=== PATIENT | female | born 2000 | race Two or more races ===

== ENCOUNTER 2025-06-28 18:22 | Emergency (ER) | payer OTHER ==
[2025-06-28] MEDS ORDERED: ONDANSETRON HCL 2 MG/ML VIAL IV ONE (22:30)
[2025-06-28] MEDS ORDERED: ONDANSETRON HCL 2 MG/ML VIAL ONE (22:40)
[2025-06-29] MEDS ORDERED: DICLOFENAC SODI75 MG PO (00:16)
[2025-06-29] MEDS ORDERED: DOXYCYCLINE HY100 M2 PO (00:16)
[2025-06-29] MEDS ORDERED: OXYBUTYNIN CHLORIDE 5 MG TABLET PO ONE (00:30)
[2025-06-29] MEDS ORDERED: OxyCODONE HCL ER 10MG TAB (OxyCONTIN) PO ONE (00:30)
== END 2025-06-29 00:36 | disposition home or self-care (01) ==
LOC: ER 18:22
DX: L02.01 Cutaneous abscess of face (principal); H05.011 Cellulitis of right orbit; F14.10 Cocaine abuse, uncomplicated; F13.10 Sedative, hypnotic or anxiolytic abuse, uncomplicated